=== PATIENT | male | born 1975 ===

== ENCOUNTER 2018-04-26 07:41 | Day surgery (SDC) | payer BC ==
--- NOTE | 2018-04-17 15:38 | HP ---
HISTORY AND PHYSICAL: DATE OF ADMISSION/SURGERY: 04/26/18 DATE OF OFFICE VISIT: 04/16/18 SURGEON: Sakina Peralta MD * (DICTATED BY ROBERTO PARNELL) PROCEDURE: Right knee arthroscopy with partial medial meniscectomy, possible chondroplasty, possible synovectomy. CHIEF COMPLAINT: Right knee pain. HISTORY OF PRESENT ILLNESS: Mr. Nguyen is a 42-year-old gentleman with complaints of right knee pain and MRI confirms a medial meniscus tear. He has elected to proceed with surgery scheduled for 04/26/18. PAST MEDICAL HISTORY: Fibromyalgia. PAST SURGICAL HISTORY: Left wrist tendon repair and appendectomy. CURRENT MEDICATIONS: 1. Duloxetine. 2. Tramadol. ALLERGIES: No known drug allergies. FAMILY HISTORY: Cancer and hypertension. SOCIAL HISTORY: This is a 42-year-old gentleman who lives with his and children. Does not smoke, use drugs or alcohol. REVIEW OF SYSTEMS: A complete 14-point review of systems was reviewed with the patient. It was all negative and noncontributory. He denies history of DVT, PE, hepatitis, HIV, or anesthesia problems. PHYSICAL EXAMINATION GENERAL: He is well developed, well nourished, in no acute distress. VITAL SIGNS: He stands 72 inches tall, weighs 315 pounds. Blood pressure is 120/84 and his heart rate 72. HEENT: Normocephalic, atraumatic. NECK: Supple. No palpable lymph nodes. PULMONARY: The lungs are clear to auscultation bilaterally. CARDIO: Regular rate and rhythm. Strong S1, S2. ABDOMEN: Soft, nontender, nondistended. MUSCULOSKELETAL: Right lower extremity: The skin is intact. There are no open wounds or abrasions. There is some tenderness over the medial joint. There is a mild joint effusion. Positive Melonie's. Positive Apley's. Negative Adan's. Range of motion is 5 to 125 degrees. He is distally and neurovascularly intact. NEUROLOGIC: He is alert and oriented x3. ASSESSMENT AND PLAN: Mr. Nguyen is a 42-year-old gentleman with complaints of right knee pain and MRI confirms medial meniscus tear. He is likely to proceed with surgery, which is scheduled for 04/26/18. Dr. Peralta discussed the risks and benefits of a right knee arthroscopy with partial medial meniscectomy , possible chondroplasty, possible synovectomy. All of his questions were answered. He will follow up with Dr. Peralta 2 weeks after the surgery. ROBERTO PARNELL [id number]/[facility] #: [id number] MTDD
[~2018-04-26 07:41] MED LIST: Buffered Lidocaine 0.9% SYRIN* 5 ML/SYR SYRINGE INTRADERM ONE; Dexamethasone IV* 4 MG/ML 1 ML (4 MG) IV SLOW PU ONE; Famotidine IV* 10 MG/ML 2 ML (20 mg) IV ONE
[2018-04-26] MEDS ORDERED: ceFAZolin 2 GM in NS PREMIX(*) 2 GM/100 ML BAG IVPB ONE (07:52)
[2018-04-26] MEDS ORDERED: Dexamethasone IV* 4 MG/ML 1 ML (4 MG) ONE (07:52)
[2018-04-26] MEDS ORDERED: Famotidine IV* 10 MG/ML 2 ML (20 mg) ONE (07:52)
[2018-04-26] MEDS ORDERED: Buffered Lidocaine 0.9% SYRIN* 5 ML/SYR SYRINGE ONE (07:52)
[2018-04-26] MEDS ORDERED: ceFAZolin 1 GM in Dextrose (*) 1 GM/50 ML BAG IVPB ONE (07:53)
[2018-04-26] MEDS ORDERED: methylPREDNISolone ACETATE 80* 80 MG/ML 1 ML VIAL ONE (09:08)
[2018-04-26] MEDS ORDERED: EPINEPHRINE 1 MG/ML 1 ML VIAL ONE (09:08)
[2018-04-26] MEDS ORDERED: ROPIVACAINE 5 MG/ML 30 ML BTL (0.5%) ONE (09:09)
[2018-04-26] MEDS ORDERED: Midazolam* 1 MG/ML 5 ML VIAL (5 MG) ONE (09:15)
[2018-04-26] MEDS ORDERED: fentaNYL* 50 MCG/ML 5 ML VIAL (250 MCG VIAL) ONE (09:15)
[2018-04-26] MEDS ORDERED: Lidocaine 2% PF * 5 ML VIAL ONE (09:15)
[2018-04-26] MEDS ORDERED: Chloroprocaine 2%* 20 ML VIAL ONE (09:29)
[2018-04-26] MEDS ORDERED: oxyCODONE/Acetamin 5/325 MG* TAB PO PRN (09:49)
[2018-04-26] MEDS ORDERED: Naloxone* 0.4 MG/ML 1 ML VIAL IV PRN (09:49)
[2018-04-26] MEDS ORDERED: Ondansetron INJ* 2 MG/ML VIAL IV PRN (09:49)
[2018-04-26] MEDS ORDERED: DiMENhydriNATE IV* 50 MG/ML VIAL IV PUSH PRN (09:49)
[2018-04-26] MEDS ORDERED: fentaNYL* 50 MCG/ML 2 ML VIAL (100 MCG VIAL) IV PRN (09:49)
[2018-04-26 11:40] VITALS: BP 117/67
--- NOTE | 2018-04-27 02:23 | OP ---
DATE OF OPERATION: 04/26/18 - [facility] DATE OF : 75 ATTENDING SURGEON: Sakina Peralta MD FRAUD PREVENTION ANALYST: ROBERTO Salguero. Ms. Mendoza did help throughout the procedure with preparation of the leg, wound retraction, and manipulation of the knee. ANESTHESIOLOGIST: Dr. Fuentes. ANESTHESIA: Spinal. PRE-OP DIAGNOSIS: Right knee medial meniscal tear. 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 OPERATIVE PROCEDURE: Right knee arthroscopy with partial medial meniscectomy, partial lateral meniscectomy, and patellofemoral chondroplasty. BRIEF HISTORY/INDICATION: Mr. Nguyen is a 42-year-old gentleman with mechanical symptoms along his medial joint line over the last year. He had an MRI, which confirmed a medial meniscal tear. Due to conservative treatment failure, he elected to undergo right knee arthroscopy with partial meniscectomy , possible chondroplasty, possible synovectomy. Informed consent was obtained from the patient. He understood the risks of surgery included, but were not limited to, bleeding, infection, damage to nearby structures, continued pain, need for further surgery, retear of the meniscus, stroke, heart attack, blood clot, and . He wished to proceed. INTRAOPERATIVE FINDINGS: Intraoperatively, the patient was noted to have a radial tear along the posterior root of his lateral meniscus, he had a complex tear with radial and longitudinal component in the medial meniscus involving his posterior two-thirds and majority of the body. He had a grade 3 and 4 Outerbridge cartilage changes in the medial and patellofemoral compartment. ESTIMATED BLOOD LOSS: Less than 25 cc. COMPLICATIONS: None. DESCRIPTION OF PROCEDURE: Mr. Nguyen was identified in the preanesthesia unit. His right lower extremity was marked as the correct operative side. Informed consent was signed and placed in the chart. The patient was taken to the operating room and placed under spinal anesthesia. Right lower extremity was prepped and draped in the usual sterile fashion. Preop time-out was made to correctly identify the patient, side, and site. Appropriate perioperative antibiotics were given within 1 hour of incision. A standard anterolateral portal incision was made and trocar was introduced. As soon as the light and water sources were turned on, there was immediate visualization of the suprapatellar pouch. A tour of the knee joint was performed. Suprapatellar pouch had no obvious abnormalities. Patellofemoral compartment showed grade 3 and 4 Outerbridge cartilage changes with a small cartilage flap along the medial patellar facet. Medial gutter showed no loose body or plica. Medial compartment showed grade 3 and 4 Outerbridge cartilage changes with exposed subchondral bone along the medial femoral condyle. There was a large anteriorly displaced meniscal tear involving the majority of the body and posterior portion of the medial meniscus. ACL and PCL appeared to be intact. The knee was placed in a jbocta-sy-wctu position. Lateral cartilage had no significant degenerative changes. There was a radial tear in the posterior horn of the lateral meniscus with some displacement into the joint. Under direct visualization, a medial portal incision was made. Probe was introduced and a second tour of the knee joint was performed. There were no additional findings. Straight biter and shaver were used to perform partial medial meniscectomy. This involved the majority of the body and posterior portion of the meniscus. This is a complex tear in the white-red zone with both radial and longitudinal component. Once a smooth border was obtained, probing was performed to ensure there were no additional slipped fragments. Radiofrequency ablation wand was used to further smooth the edge of the meniscus. The knee was placed in a egplmv-wo-zszt position. Next, straight biter and shaver were used to perform partial lateral meniscectomy. A smooth border of a posterior horn was obtained in the white-red zone. Further probing of the lateral meniscus showed no additional tearing. The knee was brought out into extension. Radiofrequency ablation wand was used to perform chondroplasty and smooth the cartilage flap along the medial patellar facet. A significant amount of exposed subchondral bone was noted in the femoral trochlear notch. The knee was copiously irrigated with sterile saline. All instruments were removed. The incisions were closed using interrupted nylon suture. Intraarticular injection of 80 mg Depo-Medrol and 6 cc of 0.25% Marcaine was placed in the knee joint. The patient's incisions were covered with Xeroform, 4x4s, and Webril. Cali wrap and cold pack were placed over this. The patient's anesthesia was reversed without difficulty. He was taken to the PACU in stable condition. Intended weightbearing will be weightbearing as tolerated. Intended DVT prophylaxis will be aspirin. [id number]/[facility] #: [id number] CHRISTINA
== END 2018-04-26 11:41 | disposition home or self-care (01) ==
LOC: OR 07:41
PROVIDERS: ATTEND Orthopaedic Surgery Adult Reconstructive Orthopaedic Surgery
DX: S83.241A Other tear of medial meniscus, current injury, right knee, initial encounter (principal); S83.281A Other tear of lateral meniscus, current injury, right knee, initial encounter; X58.XXXA Exposure to other specified factors, initial encounter; Y92.9 Unspecified place or not applicable; M17.11 Unilateral primary osteoarthritis, right knee; Z87.891 Personal history of nicotine dependence; M79.7 Fibromyalgia; E66.9 Obesity, unspecified
CPT/HCPCS: J0690; J1040; J1100; J2250; J2400; J2795; J3010

== ENCOUNTER 2019-07-25 14:40 | Emergency (ER) | payer BC ==
--- OUTSIDE RECORDS SUMMARY | 2019-07-25 14:47 | XMS REPORT | Continuity of Care Document ---
:1975 External Reference #:[id number] Author Name Simin Nicholas MD Address [address] [place] [id number] Problems Active Problems Provider Date Malaise and fatigue Lillie Pitts RN MS LEGISLATIVE AIDE Onset: 06/02/2011 Allergic rhinitis Lillie Pitts RN MS LEGISLATIVE AIDE Onset: 06/02/2011 Moderate recurrent major depression Lillie Pitts RN MS LEGISLATIVE AIDE Onset: 06/02 HIV negative Joe Gupta PA Onset: 08/07/2017 Note: 07/2017 Hydrocele Joe Gupta PA Onset: 01/22/2019 Note: R>L -- 12/2018 Social History Type Date Description Comments Sex Unknown Tobacco Use Start: Unknown End: Former Cigarette Smoker Unknown ETOH Use Currently consumes alcohol Tobacco Use Start: Unknown End: Patient is a former smoker quit ~2004. smoked Unknown 10pk/yrs Smoking Status Reviewed: 01/11/19 Patient is a former smoker quit ~2004. smoked 10pk/yrs Allergies, Adverse Reactions, Alerts Description No Known Drug Allergies Medications Active Medications SIG Qnty Indications Ordering Provider Date Meloxicam take 1/2 to 1 30tabs M25.561 Simin Nicholas 06/04/2019 15mg tablet by mouth MD Jenaro Tablets once daily as needed Cephalexin 1 by mouth three 21tabs L02.211 Simin Nicholas 06/04/2019 500mg times a day MD Jenaro Tablets Amphetamine-Dextroam 1 by mouth every 60caps F90.0 Simin Nicholas 2018 phet ER in the morning MD Jenaro 20mg Caps ER and then 1 by 24HR mouth after lunch. Knee Compression wear at all times 1units M25.561 [facility] S[facility] with activity MD Jenaro LEFT/RIGHT/Large/Xla rge Misc Fluticasone 2 sprays in each 16units J01.00 [facility] 09/13/2017 Propionate nostril daily MD Jenaro 50mcg/Act Suspension Zolpidem Tartrate 1 tablets per 30tabs G47.00 [facility] 08/03/2017 5mg oral at hour of MMD Tablets sleep as needed for insomnia G47.26 Tramadol HCL take one tablet by 90tabs G89.4 [facility] 03/31/2017 50mg mouth up to three MD Jenaro Tablets times a day as needed for pain max of 3 tablets per day M17.0 Duloxetine HCL Take 1 Capsule 180caps G89.4 [facility] 10/07/2013 60mg Caps Twice A Day MD DR Walter Eason Vitamin D 1 po qd E55.9 [facility] 09/16/2013 2000Unit MD Jenaro Capsules Medications Administered in Office Medication SIG Qnty Indications Ordering Provider Date PPD Simin Nicholas MD 04/06/2004 Injection Torodol Injection 15 MG Dose Simin Nicholas MD 03/25/2004 Injection Immunizations CPT Code Status Date Vaccine Lot # [id number] Given 06/04/2019 Influenza Vac, Quadrivalent, Split, 0.5mL Dosage, [id number] Im Use [id number] Given 08/03/2017 Influenza Vac, Quadrivalent, Split, 0.5mL Dosage, [id number] Im Use Vital Signs Date Vital Result Comment 06/04/2019 4:33pm Weight 309.00 lb Heart Rate 80 /min BP Systolic 130 mmHg BP Diastolic 84 mmHg Height 72 inches 6'0" BMI (Body Mass Index) 41.9 kg/m2 01/11/2019 8:04am Weight 298.00 lb Heart Rate 63 /min BP Systolic 127 mmHg BP Diastolic 92 mmHg Height 72 inches 6'0" BMI (Body Mass Index) 40.4 kg/m2 Results Test Acquired Date Facility Test Result H/L Range Note Laboratory test finding 06/04/2019 [facility] TSH <pending> Free T4 <pending> Vit D 25Oh <pending> Procedures Date Code Description Status 10/08/2010 [id number] Colonoscopy Completed Medical Devices Description No Information Available Encounters Type Date Location Provider Dx Diagnosis Office Visit 01/11/2019 8:00a Joe Myers PA K40.90 Unil inguinal hernia, w/o obst or gangr, not spcf as recur E66.01 Morbid (severe) obesity due to excess calories Z68.41 Body mass index (BMI) 40.0-44.9, adult Assessments Date Code Description Provider 06/04/2019 E66.01 Morbid (severe) obesity due to excess Simin Nicholas MD calories 06/04/2019 M25.561 Pain in RIGHT knee Simin Nicholas MD 06/04/2019 G89.4 Chronic pain syndrome Simin Nicholas MD 06/04/2019 M79.7 Fibromyalgia Simin Nicholas MD 06/04/2019 F90.0 Attention-deficit hyperactivity disorder, Simin Nicholas MD predominantly inat 06/04/2019 Z12.31 Encounter for screening mammogram for Simin Nicholas MD malignant neoplasm of breast 06/04/2019 N43.3 Hydrocele, unspecified Simin Nicholas MD 06/04/2019 R53.83 Other fatigue Simin Nicholas MD 06/04/2019 E55.9 Vitamin D deficiency, unspecified Simin Nicholas MD 06/04/2019 M25.552 Pain in LEFT hip Simin Nicholas MD 06/04/2019 L02.211 Cutaneous abscess of abdominal wall Simin Nicholas MD 06/04/2019 Z68.41 Body mass index (BMI) 40.0-44.9, adult Simin Nicholas MD 01/11/2019 K40.90 Unilateral inguinal hernia, without Joe Gupta PA obstruction or gangrene, 01/11/2019 E66.01 Morbid (severe) obesity due to excess Joe Gupta PA calories 01/11/2019 Z68.41 Body mass index (BMI) 40.0-44.9, adult Joe Gupta PA Plan of Treatment 06/04/2019 - Simin Nicholas MDE66.01 Morbid (severe) obesity due to excess mvtlmzktH15.561 Pain in RIGHT kneeNew Medication:Meloxicam 15 mg - take 1/2 to 1 tablet by mouth once daily as cdmsfvT69.4 Chronic pain nqfjgxveO58.7 HukwsomelgdeI64.0 Attention-deficit hyperactivity disorder, predominantly inatZ12.31 Encounter for screening mammogram for malignant neoplasm of orwasmK85.3 Hydrocele, mnmrjoipnhzL73.83 Other cwsxdvkU26.9 Vitamin D deficiency , hehxetsffmdZ49.552 Pain in LEFT hipNew Xrays:Hip, Complete, Min. Of 2 Views, LT, Ordered: 06/04/19Referral:Sakina Peralta DR, Surgery,Ortho Adult ReconFollow up:GIVE PRINTED XRAY ORDER the one CC'ing Dr Graham02.211 Cutaneous abscess of abdominal wallNew Medication:Cephalexin 500 mg - 1 by mouth three times a dayZ68.41 Body mass index (BMI) 40.0-44.9, adult Functional Status Description No Information Available Mental Status Description No Information Available Referrals Refer to Dr Reason for Referral Status Appt Date Sakina Peralta DR Created [address] [place], [place] [id number] [phone] Og Ambrosio groin pain 01/16-SCHEDULED WITH NUSRAT Patient Declined 01/31/2019 TO SEE , PT AWARE OF APPT-AA [facility] [address] [place] [phone] inguinal hernia 01/11-SCHEDULED WITH DOREEN WHILE Closed IN OFFICE SO IS DEF AWARE OF APPT-AA [facility], [address] [facility], [place] [address] [phone]
--- NOTE | 2019-07-25 17:23 | UC ---
Lower Extremity/Ankle HPI - HPI Summary HPI Summary: 43-year-old male presents with complaints of right great toe pain. States on he was descending some stairs, slipped on a rug, and jammed his toe into the step below. Complains of pain, swelling, and bruising to the toe. Has been able to walk and bear weight since the injury although with discomfort. Denies any numbness or tingling. - History of Current Complaint Chief Complaint: UCLowerExtremity Stated Complaint: FOOT PAIN Time Seen by Provider: 07/25/19 16:54 Pain Intensity: 8 - Allergies/Home Medications Allergies/Adverse Reactions: Allergies Allergy/AdvReac Type Severity Reaction Status Date / Time No Known Allergies Allergy Verified 07/25/19 15:04 Home Medications: Home Medications Hydrocodone/Acetaminophen [Vicodin Es 7.5-300 mg Tablet] 1 tab PO Q6HR 07/25/19 [History Confirmed 07/25/19] PMH/Surg Hx/FS Hx/Imm Hx Previously Healthy: Yes - Surgical History Surgical History: Yes Surgery Procedure, Year, and Place: left wrist tendon repair - - [place]. appendectomy 2001 - [place]. right knee - Family History Known Family History: Positive: Non-Contributory - Social History Occupation: Employed Full-time Lives: With Family Alcohol Use: None Substance Use Type: None Smoking Status (MU): Former Smoker Amount Used/How Often: 1 ppd for 10 yrs When Did the Patient Quit Smoking/Using Tobacco: 2007 Review of Systems All Other Systems Reviewed And Are Negative: Yes Constitutional: Positive: Negative Skin: Positive: Bruising Respiratory: Positive: Negative Cardiovascular: Positive: Negative Gastrointestinal: Positive: Negative Genitourinary: Positive: Negative Motor: Negative: Weakness Neurovascular: Negative: Decreased Sensation Musculoskeletal: Positive: Other: - See HPI Neurological: Positive: Negative Is Patient Immunocompromised?: No Physical Exam - Summary Physical Exam Summary: GENERAL APPEARANCE: Well developed, well nourished, alert and cooperative, and appears to be in no acute distress. CARDIAC: Normal S1 and S2. No S3, S4 or murmurs. Rhythm is regular. There is no peripheral edema, cyanosis or pallor. Extremities are warm and well perfused. Capillary refill is less than 2 seconds. Peripheral pulses intact. LUNGS: Clear to auscultation without rales, rhonchi, wheezing or diminished breath sounds. ABDOMEN: Positive bowel sounds. Soft, nondistended, nontender. No guarding or rebound. No masses or hepatosplenomegally. MUSKULOSKELETAL: Normal muscular development. Limping gait. EXTREMITIES: Tenderness over the proximal phalanx of the right great toe without gross deformity. Moderate edema with ecchymosis. Circulation and sensation intact. SKIN: Skin normal color, texture and turgor. Triage Information Reviewed: Yes Vital Signs: Initial Vital Signs Temp 98.9 F 07/25/19 14:58 Pulse 74 07/25/19 14:58 Resp 16 07/25/19 14:58 BP 129/85 07/25/19 14:58 Pulse Ox 97 07/25/19 14:58 Vital Signs Reviewed: Yes Diagnostics - Radiology No standard instances Radiology Interpretation Completed By: Radiologist Summary of Radiographic Findings: Order Information: FOOT RIGHT 3+ VWS. INDICATION: Right foot injury. TECHNIQUE: 3 views of the right foot were obtained. FINDINGS: There is soft tissue swelling in the medial aspect of the foot and right great toe. There is an oblique comminuted slightly displaced fracture of the proximal phalanx of the great toe. The fracture appears to extend to the proximal articular margin. Joint spaces appear maintained. IMPRESSION: OBLIQUE COMMINUTED SLIGHTLY DISPLACED INTRA-ARTICULAR FRACTURE OF THE PROXIMAL PHALANX OF THE GREAT TOE Lower Extremity Course/Dx - Course Course Of Treatment: 43-year-old male presents with complaints of right great toe pain. States on he was descending some stairs, slipped on a rug, and jammed his toe into the step below. Complains of pain, swelling, and bruising to the toe. Has been able to walk and bear weight since the injury although with discomfort. Denies any numbness or tingling. Afebrile. Vital signs stable. On exam patient had tenderness over the proximal phalanx of the right great toe without gross deformity. Moderate edema with ecchymosis. Circulation and sensation intact. X-ray showed an oblique comminuted slightly displaced fracture of the proximal phalanx of the great toe which appears to extend to the proximal articular margin. Reviewed results with the patient. Recommending conservative treatment for a right great toe fracture including bqvn-qjk-yqszeay analgesics and RICE. He was placed in a CAM boot, provided crutches with instructions, and recommended to be nonweightbearing until follow- up with orthopedic surgery. He is to follow with orthopedic surgery in 3-5 days for further evaluation and treatment. Anticipatory guidance and warning symptoms are reviewed with the patient. Verbalizes understanding and agrees with plan of care. - Differential Dx/Diagnosis Differential Diagnosis/HQI/PQRI: Contusion, Dislocation, Fracture (Closed), Sprain Provider Diagnosis: Closed displaced fracture of proximal phalanx of right great toe Discharge ED - Sign-Out/Discharge Documenting (check all that apply): Patient Departure All imaging exams completed and their final reports reviewed: Yes - Discharge Plan Condition: Stable Disposition: HOME Patient Education Materials: Crutch Instructions (ED), Toe Fracture (ED), Walking Boot (ED) Referrals: Simin Sosa MD [Primary Care Provider] - Sakina Peralta MD [Medical Doctor] - 3 Days (Follow up in 3-5 days for further evaluation and treatment.) Additional Instructions: The x-ray performed in the clinic today showed evidence of an oblique comminuted slightly displaced fracture of the proximal phalanx of the great toe. Rest the foot as much as possible. You should remain non-weight bearing until evaluated by orthopedic surgery. Use the crutches provided. Wear the CAM boot that was applied in the clinic for support and protection of the injury. You may remove to sleep and shower but should wear at all other times. Apply ice to the affected area for 15-20 minutes at least 4 times a day to help with the pain and swelling. Elevate the foot to help reduce swelling. Take acetaminophen (Tylenol) or ibuprofen (Advil, Motrin) according to directions as needed for pain. Follow up with orthopedic surgery in 3-5 days if symptoms do not improve. Seek immediate medical attention if you have severe pain not managed with pain medication, develop numbness or tingling in the foot or toes, or have any worsening of symptoms. - Billing Disposition and Condition Condition: STABLE Disposition: Home
[2019-07-25 18:32] VITALS: BP 135/67
== END 2019-07-25 17:40 | disposition home or self-care (01) ==
LOC: UCEAST 14:40
DX: S92.411A Displaced fracture of proximal phalanx of right great toe, initial encounter for closed fracture (principal); Z87.891 Personal history of nicotine dependence; W18.49XA Other slipping, tripping and stumbling without falling, initial encounter; W23.0XXA Caught, crushed, jammed, or pinched between moving objects, initial encounter; Y92.9 Unspecified place or not applicable
CPT/HCPCS: 99212; G0463

== ENCOUNTER 2019-09-17 09:36 | Emergency (ER) | payer SELFPAY ==
[2019-09-17] MEDS ORDERED: Lidocaine 1% INJ* 10 MG/ML 30 ML SDV ONE (09:58)
--- NOTE | 2019-09-17 09:59 | ED ---
Laceration/Wound HPI - HPI Summary HPI Summary: The patient is a 43 y/o M presenting to [facility] accompanied by brother and with a cc of laceration to the anterior left forearm onset immediately [employer]. 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 He states that the arm bleeding immediately, and the blood flow appears pulsatile and squirting. Pain is rated 4/10 in severity. A dressing and bandage was applied to help manage bleeding. He is concerned for radial artery damage. He denies any motor change in the LUE. Right dominant hand. No anticoagulant use. Unsure if UTD on tetanus. PMHx: fibromyalgia. Former smoker, no EtOH, no substance use. Medications reviewed. Allergies noted. Home Medications Medication Instructions Recorded Confirmed Type DULoxetine DR CAP* [Cymbalta CAP*] 60 mg PO BID 04/19/18 09/17/19 History Ibuprofen TAB* [Advil TAB*] 200 mg PO Q6H PRN 09/17/19 09/17/19 History - History of Current Complaint Stated Complaint: LT ARM LAC PER PT Time Seen by Provider: 09/17/19 09:53 Hx Obtained From: Patient Mechanism of Injury: Sharp/Blunt Trauma - welding metal Onset/Duration: Sudden Onset, Still Present Aggravating: Nothing Alleviating: Compression - bandage applied [employer] Onset Severity: Severe Current Severity: Moderate Pain Intensity: 4 Pain Scale Used: 0-10 Numeric Associated Signs & Symptoms: Negative Related Hx: Dominant Hand (Right) - Allergy/Home Medications Allergies/Adverse Reactions: Allergies Allergy/AdvReac Type Severity Reaction Status Date / Time No Known Allergies Allergy Verified 07/25/19 15:04 Home Medications: Home Medications DULoxetine DR CAP* [Cymbalta CAP*] 60 mg PO BID 04/19/18 [History Confirmed ] Ibuprofen TAB* [Advil TAB*] 200 mg PO Q6H PRN 09/17/19 [History Confirmed ] PMH/Surg Hx/FS Hx/Imm Hx Endocrine/Hematology History: Denies: Hx Diabetes Cardiovascular History: Denies: Hx Hypertension Respiratory History: Denies: Hx Chronic Obstructive Pulmonary Disease (COPD) Musculoskeletal History: Reports: Other Musculoskeletal History - current right knee, hx left wrist tendon repair Neurological History: Reports: Other Neuro Impairments/Disorders - fibromyalgia - Surgical History Surgical History: Yes Surgery Procedure, Year, and Place: left wrist tendon repair - - [place]. appendectomy 2001 - [place]. right knee Hx Anesthesia Reactions: No Infectious Disease History: No Infectious Disease History: Denies: Traveled Outside the [place] in Last 30 Days - Family History Known Family History: Negative: Diabetes - Social History Alcohol Use: None Hx Substance Use: No Substance Use Type: Reports: None Hx Tobacco Use: Yes Smoking Status (MU): Former Smoker Amount Used/How Often: 1 ppd for 10 yrs Review of Systems Positive: Other - laceration to the anterior left forearm Neurological/Mental Status: Other - Negative: motor difficulties in the LUE All Other Systems Reviewed And Are Negative: Yes Physical Exam - Summary Physical Exam Summary: General: Well appearing, no distress HEENT: PERRL Cardiovascular: Skin is well perfused Pulmonary: No respiratory distress, no tachypnea Abdomen: Non-distended Skin: Warm, pink, dry MSK: 4 cm laceration to the ventral left forearm with active bleeding, No edema. L Hand PE 2+ radial pulse Motor: Opposition of thumb and first finger intact Able to cross first and second finger Able to extend thumb Able to flex and extend wrist Able to spread fingers Sensory: Sensation intact in 1st, 2nd, and 5th digits Pulse: 2+ radial pulse intact. Brisk cap refill. No tenderness snuffbox Psych: Normal affect Neuro: A&Ox3 Triage Information Reviewed: Yes Vital Signs On Initial Exam: Initial Vitals Temp Pulse Resp BP Pulse Ox 97.6 F 88 18 160/114 97 09/17/19 09:44 09/17/19 09:44 09/17/19 09:44 09/17/19 09:44 09/17/19 09:44 Vital Signs Reviewed: Yes Procedures - Sedation Patient Received Moderate/Deep Sedation with Procedure: No - Laceration/Wound Repair 1 Location: upper extremity - left forearm Description: Linear Anesthesia: Local, 1.0%, Lido Length, Depth and Shape: 4 cm Irrigated w/ Saline (ccs): 500 Laceration/Wound Explored: clean, no foreign body removed Suture Type: Prolene - 4-0, Vicryl - 1 4-0 Number of Sutures: 5 - 3 horizontal mattress sutures, 2 single sutures Diagnostics - Vital Signs Vital Signs Temp Pulse Resp BP Pulse Ox 02/25/20 09:44 97.6 F 88 18 160/114 97 - Laboratory Lab Statement: Any lab studies that have been ordered have been reviewed, and results considered in the medical decision making process. Re-Evaluation - Re-Evaluation First Eval Re-Evaluation Time: 10:15 Comment: Laceration repaired. Patient tolerated well. Plan for d/c. Patient given suture instructions. Laceration Repair Course/Dx - Course Course Of Treatment: 43 y/o R handed male p/w L forearm laceration. - active small arterial bleed, stopped w figure 8 stitch. Placed 5 additional sutures. - SILT, 2+ radial pulse and good cap refill. Tetanus updated - Clinical Impression Provider Diagnoses: Laceration Discharge ED - Sign-Out/Discharge Documenting (check all that apply): Patient Departure - Patient will be discharged home. - Discharge Plan Condition: Stable Disposition: HOME Patient Education Materials: Care For Your Stitches (DC), Laceration (DC) Referrals: Simin Sosa MD [Primary Care Provider] - 09/27/19 Additional Instructions: You received sutures (stitches) today. These need to be removed in 10 days. Please keep the area dry and clean. Return to the emergency department or seek medical attention for drainage, redness to the area, increased pain around the laceration. Once the wound is healed, you can apply sunscreen to help with scar prevention. You got a tetanus shot! It was a pleasure taking care of you today. - Billing Disposition and Condition Condition: STABLE Disposition: Home - Attestation Statements Document Initiated by Maria Guadalupe: Yes Documenting Scribe: Elizabeth Alegria Provider For Whom Maria Guadalupe is Documenting (Include Credential): Dr. James Longoria MD Scribe Attestation: I, Elizabeth Alegria, scribed for Dr. James Longoria MD on 09/17/19 at 1035. Scribe Documentation Reviewed: Yes Provider Attestation: The documentation as recorded by the Elizabeth sanchez accurately reflects the service I personally performed and the decisions made by me, Dr. James Longoria MD Status of Scribe Document: Viewed
[2019-09-17] MEDS ORDERED: Tetan/Diph/Pertus SYR(Tdap)* 0.5 ML SYR(BOOSTRIX) use SYR contains LATEX IM ONE (10:16)
--- OUTSIDE RECORDS SUMMARY | 2019-09-17 10:29 | XMS REPORT | Continuity of Care Document ---
:1975 External Reference #:[id number] Author Name Sakina Peralta M.D. 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 Onset: 06/08/2018 Social History Type Date Description Comments Sex Unknown ETOH Use Denies alcohol use Tobacco Use Start: Unknown End: Patient is a former smoker Unknown Recreational Drug Use Denies Drug Use Smoking Status Reviewed: 08/12/19 Patient is a former smoker Exercise Type/Frequency Exercises sporadically Allergies, Adverse Reactions, Alerts Description No Known Drug Allergies Medications Active Medications SIG Qnty Indications Ordering Provider Date Duloxetine HCL 1 tab by mouth Unknown 60mg Caps twice daily DR Watson Amphetamine-Dextroamph 1 by mouth every Unknown et ER day 20mg Caps ER 24HR Zolpidem Tartrate 1 by mouth tablet Unknown 5mg at bedtime as Tablets needed Immunizations Description No Information Available Vital Signs Date Vital Result Comment 08/12/2019 2:57pm Height 62.75 inches 5'2.75" Weight 319.00 lb Heart Rate 80 /min BP Systolic Sitting 150 mmHg BP Diastolic Sitting 98 mmHg Respiratory Rate 16 /min Pain Level 7 BMI (Body Mass Index) 57.0 kg/m2 01/16/2019 8:48am Weight 298.00 lb Heart Rate 76 /min BP Systolic 122 mmHg BP Diastolic 82 mmHg Respiratory Rate 18 /min Body Temperature 96.9 F Results Description No Information Available Procedures Description No Information Available Medical Devices Description No Information Available Encounters Description No Information Available Assessments Description No Information Available Plan of Treatment No Information Available Functional Status Description No Information Available Mental Status Description No Information Available Referrals Description No Information Available
[2019-09-17 10:35] VITALS: BP 160/98
== END 2019-09-17 10:34 | disposition home or self-care (01) ==
LOC: ED 09:36
DX: S51.812A Laceration without foreign body of left forearm, initial encounter (principal); W45.8XXA Other foreign body or object entering through skin, initial encounter; Y92.9 Unspecified place or not applicable; Z87.891 Personal history of nicotine dependence
CPT/HCPCS: 12002; 90471; 90715; 99282